=== PATIENT | male | born 1990 | race Hispanic/Latino ===

== ENCOUNTER 2023-09-28 15:18 | Emergency (ER) | payer OTHER ==
[2023-09-28] MEDS ORDERED: Lidocaine 1% PF 5 ML VIAL ONE (15:32)
[2023-09-28] MEDS ORDERED: Boostrix 0.5 ML (Tdap) VIAL (>/=7 yrs of age) ONE (15:33)
[2023-09-28] MEDS ORDERED: Bacitracin 1 PK ONE (15:55)
== END 2023-09-28 16:06 | disposition home or self-care (01) ==
LOC: ERS 15:18
DX: S61.512A Laceration without foreign body of left wrist, initial encounter (principal); W26.9XXA Contact with unspecified sharp object(s), initial encounter; Z23 Encounter for immunization
CPT/HCPCS: 12001; 90471; 90715

== ENCOUNTER 2023-10-06 14:12 | Emergency (ER) | payer OTHER | END 2023-10-06 15:06 | disposition home or self-care (01) | LOC: ERS 14:12 | DX: S61.512D Laceration without foreign body of left wrist, subsequent encounter (principal); W26.8XXD Contact with other sharp object(s), not elsewhere classified, subsequent encounter ==

== ENCOUNTER 2023-12-23 08:41 | Emergency (ER) | payer OTHER | END 2023-12-23 09:10 | disposition home or self-care (01) | LOC: ERS 08:41 | DX: S61.211D Laceration without foreign body of left index finger without damage to nail, subsequent encounter (principal); F17.210 Nicotine dependence, cigarettes, uncomplicated; X58.XXXD Exposure to other specified factors, subsequent encounter ==